=== PATIENT | female | born 1945 | race Caucasian/White ===

== ENCOUNTER → 2016-12-06 | Outpatient (CLI) | payer OTHER ==
[2015-01-04 11:55] VITALS: BP 161/69
--- NOTE | 2016-12-06 10:17 | VAS ---
HISTORY: Left lower extremity pain Study: Left lower extremity venous Doppler Comparison: None TECHNIQUE: Multiple reis scale and color flow Doppler images of the deep venous system were obtaine d of the left lower extremity. FINDINGS: The deep venous system of the left lower extremity was evaluated from the level of the common femora l vein through the popliteal vein. Normal color flow and augmentation can be observed. In addition , normal compression is seen throughout the deep venous system. Incidental note was made of what shane ears to be a 2 centimeter x 1 centimeter architecturally normal lymph node in the popliteal fossa. IMPRESSION: Negative for DVT. Reported By:
== END ==
LOC: RAD 09:29
PROVIDERS: ATTEND Physician Assistant Medical
DX: M79.605 Pain in left leg (principal)
CPT/HCPCS: 93971

== ENCOUNTER → 2016-12-09 | Outpatient (CLI) | payer OTHER ==
[2015-01-04 11:55] VITALS: BP 161/69
[2016-12-09 10:12] LABS: BASOPHILS # (AUTO) 0.1 X10^3/uL (0.0-0.1); BASOPHILS % (AUTO) 1.1 % (0.2-1.0); EOSINOPHILS # (AUTO) 0.2 x10^3/uL (0.0-0.2); EOSINOPHILS % (AUTO) 2.5 % (0.9-2.9); HEMATOCRIT 39.3 % (36.0-47.0); HEMOGLOBIN 12.9 g/dL (12.0-16.0); LYMPHOCYTES # (AUTO) 4.1 X10^3/uL (1.3-2.9); LYMPHOCYTES % (AUTO) 41.6 % (21.0-51.0); MEAN CORPUSCULAR HEMOGLOBIN 29.2 pg (27.0-34.0); MEAN CORPUSCULAR HGB CONC 32.8 g/dL (33.0-35.0); MEAN PLATELET VOLUME 7.7 fL (7.4-11.0); MONOCYTES # (AUTO) 0.6 x10^3/uL (0.3-0.8); MONOCYTES % (AUTO) 6.4 % (0.0-13.0); NEUTROPHILS # (AUTO) 4.8 x10^3/uL (2.2-4.8); NEUTROPHILS % (AUTO) 48.4 % (42.0-75.0); PLATELET COUNT 418 X10^3/uL (150.0-450.0); RED BLOOD COUNT 4.42 X10^6/uL (3.5-5.4); RED CELL DISTRIBUTION WIDTH 14.5 % (11.6-16.5)
[2016-12-09 10:21] LABS: ALANINE AMINOTRANSFERASE 25 Units/L (12-78); ALBUMIN 3.5 g/dL (3.4-5.0); ALKALINE PHOSPHATASE 74 Units/L (46-116); ASPARTATE AMINO TRANSFERASE 17 Units/L (15-37); BILIRUBIN,DIRECT 0.09 mg/dL (0-0.2); BLOOD UREA NITROGEN 14 mg/dL (7-18); CALCIUM 8.5 mg/dL (8.5-10.1); CARBON DIOXIDE 27.5 mmol/L (21-32); CHLORIDE 108 mmol/L (98-107); CHOL/HDL RATIO 4.3 (0.0-5.0); CHOLESTEROL 190 mg/dL (0-200); CREATININE 0.85 mg/dL (0.55-1.02); GLUCOSE 105 mg/dL (65-99); HDL CHOLESTEROL 44 mg/dL (40-60); SODIUM 144 mmol/L (136-145); TOTAL PROTEIN 6.7 g/dL (6.4-8.2); TRIGLYCERIDES 71 mg/dL (0-150); eGFR BLACK RACES > 60 (>60); eGFR NON BLACK RACES > 60 (>60)
== END ==
LOC: LAB 09:27
PROVIDERS: ATTEND Physician Assistant Medical
DX: R07.2 Precordial pain (principal); I10 Essential (primary) hypertension
CPT/HCPCS: 36415; 80048; 80061; 80076; 85025

== ENCOUNTER → 2016-12-27 | Outpatient (CLI) | payer OTHER ==
[2015-01-04 11:55] VITALS: BP 161/69
--- NOTE | 2016-12-27 12:11 | MG ---
HISTORY: SCREENING Comparison: Multiple priors dating back to June 17, 2008 FINDINGS: Bilateral CC and MLO projections of the right and left breast were obtained. Heterogeneously dense fibroglandular tissue is seen to be present without suspicious interval change. There are bilateral waxing and waning breast nodules most compatible with benign parenchymal cysts without a new or dev eloping dominant suspicious mass or architectural distortion identified. No skin thickening or nipp le retraction is appreciated. No pathological lymphadenopathy can be identified. Benign-appearing calcifications are noted within the right and left breast. IMPRESSION: NO RADIOGRAPHIC EVIDENCE OF MALIGNANCY. ACR CATEGORY 2 - benign findings. FOLLOW-UP EXAM 1 YEAR. Diagnostic CAD was utilized and reviewed. * 0 (ZERO) - ASSESSMENT INCOMPLETE; ADDITIONAL IMAGING IS NEEDED. * 1/1 (ONE) - NEGATIVE. * 2/II (TWO) - BENIGN FINDINGS. * 3/III (THREE) - PROBABLY BENIGN FINDING; SHORT INTERVAL FOLLOW-UP SUGGESTED. * 4/IV (FOUR) - SUSPICIOUS ABNORMALITY; BIOPSY SHOULD BE CONSIDERED. * 5/V (FIVE) - HIGHLY SUSPICIOUS OF MALIGNANCY; BIOPSY SHOULD BE PERFORMED. A NEGATIVE X-RAY REPORT SHOULD NOT DELAY BIOPSY IF A DOMINANT OR CLINICALLY SUSPICIOUS MASS IS PRESENT; 4 TO 8 PERCENT OF CANCERS ARE NOT IDENTIFIED BY X-RAY. A NEG ATIVE REPORT MAY REINFORCE THE CLINICAL IMPRESSION. ADENOSIS AND DENSE BREASTS MAY OBSCURE AN UNDER LYING NEOPLASM. Reported By:
== END ==
LOC: RAD 08:39
PROVIDERS: ATTEND Specialist
DX: Z12.31 Encounter for screening mammogram for malignant neoplasm of breast (principal)
CPT/HCPCS: 77067

== ENCOUNTER → 2017-08-30 | Outpatient (CLI) | payer OTHER ==
[2015-01-04 11:55] VITALS: BP 161/69
== END ==
LOC: LAB 15:39
PROVIDERS: ATTEND Urology
DX: N39.0 Urinary tract infection, site not specified (principal)
CPT/HCPCS: 87086

== ENCOUNTER 2017-12-12 12:25 | Observation (INO) | payer OTHER ==
[2017-12-12] MEDS ORDERED: SOLU-Medrol 125 MG VIAL IVP ONE (13:14)
[2017-12-12] MEDS: DUONEB 0.5 MG/3 MG NEB SCH ×3 (13:38→19:59)
[2017-12-12 13:48] LABS: BASOPHILS # (AUTO) 0.3 X10^3/uL (0.0-0.1); BASOPHILS % (AUTO) 1.7 % (0.2-1.0); EOSINOPHILS # (AUTO) 0.2 x10^3/uL (0.0-0.2); EOSINOPHILS % (AUTO) 1.4 % (0.9-2.9); HEMATOCRIT 42.3 % (36.0-47.0); HEMOGLOBIN 14.1 g/dL (12.0-16.0); LYMPHOCYTES # (AUTO) 5.3 X10^3/uL (1.3-2.9); LYMPHOCYTES % (AUTO) 34.7 % (21.0-51.0); MEAN CORPUSCULAR HEMOGLOBIN 29.5 pg (27.0-34.0); MEAN CORPUSCULAR HGB CONC 33.3 g/dL (33.0-35.0); MEAN CORPUSCULAR VOLUME 88.6 fL (80.0-100.0); MEAN PLATELET VOLUME 7.7 fL (7.4-11.0); MONOCYTES # (AUTO) 0.9 x10^3/uL (0.3-0.8); MONOCYTES % (AUTO) 5.9 % (0.0-13.0); NEUTROPHILS # (AUTO) 8.5 x10^3/uL (2.2-4.8); NEUTROPHILS % (AUTO) 56.3 % (42.0-75.0); PLATELET COUNT 432 X10^3/uL (150.0-450.0); RED BLOOD COUNT 4.78 X10^6/uL (3.5-5.4); RED CELL DISTRIBUTION WIDTH 14.6 % (11.6-16.5); WHITE BLOOD COUNT 15.2 X10^3/uL (3.6-10.0)
[2017-12-12 14:10] LABS: ALANINE AMINOTRANSFERASE 29 Units/L (12-78); ALBUMIN 3.8 g/dL (3.4-5.0); ALKALINE PHOSPHATASE 84 Units/L (46-116); ASPARTATE AMINO TRANSFERASE 15 Units/L (15-37); BLOOD UREA NITROGEN 17 mg/dL (7-18); CALCIUM 8.7 mg/dL (8.5-10.1); CARBON DIOXIDE 22.9 mmol/L (21-32); CHLORIDE 103 mmol/L (98-107); CKMB % 2.1 % (<4); COR NA(FOR HYPERGLY) 138 mmol/L (136-145); CREATINE KINASE 77 Units/L (26-192); CREATINE KINASE MB 1.6 ng/mL (0-4.0); CREATININE 0.91 mg/dL (0.55-1.02); SODIUM 138 mmol/L (136-145); TOTAL PROTEIN 7.3 g/dL (6.4-8.2); TROPONIN I < 0.02 ng/mL (0-1.5); eGFR BLACK RACES > 60 (>60); eGFR NON BLACK RACES > 60 (>60)
[2017-12-12 15:12] VITALS: BMI 39.0
[2017-12-12] MEDS ORDERED: NS 250 ML IV 250 ML IV ONE (16:39)
[2017-12-12] MEDS ORDERED: SOLU-Medrol 125 MG VIAL ONE (16:41)
[2017-12-12] MEDS: ROCEPHIN 1 GM IV PREMIX 1 GM/50 ML IV.SOLN. IV SCH (16:42)
[2017-12-12] MEDS ORDERED: NS 100 ML IV 100 ML IV ONE (17:24)
--- NOTE | 2017-12-12 18:28 | CT ---
HISTORY: Shortness of breath. Prior history of COPD, asthma, hypertension and bladder cancer. Study: CTA chest Comparison: 02/29/2016(CT for coronary calcium only) Technique: Multiple axial images of the chest were obtained from the thoracic inlet to the upper abdo men during the administration of IV contrast. In addition to standard multi planar reconstructions, M IP reconstructions were performed and reviewed in axial, coronal and sagittal planes. Dose reduction techniques utilized automatic exposure control. Findings: The mediastinum does not demonstrate significant pathological lymphadenopathy. There is no pericardi al effusion observed. The thoracic aorta is normal in its contour without evidence for aneurysmal di latation. Coronary calcification is present within the LAD. The central pulmonary arterial system berger s not demonstrate central filling defects to suggest pulmonary emboli. Evaluation of the lung parenchyma reveals centrilobular emphysema and milder cylindrical bronchiectas is. There is linear scarring present in the left lower lobe.. No pulmonary nodule or mass can be andrés ntified. The bony thorax displays multilevel spondylosis.. Liver and adrenal glands are normal. Gal lbladder surgically absent.. IMPRESSION: Changes of COPD and left lower lobe scarring. No thoracic aortic aneurysm or pulmonary embolus is see n. Reported By:
[2017-12-12 18:38] LABS: CKMB % 2.3 % (<4); CREATINE KINASE 74 Units/L (26-192); CREATINE KINASE MB 1.7 ng/mL (0-4.0); TROPONIN I < 0.02 ng/mL (0-1.5)
--- NOTE | 2017-12-12 19:24 | DR.UPDATE ---
H&P Update History and Physical Update: WAS SEEN IN THE OFFICE TODAY. A H&P WAS COMPLETED PRIOR TO ADMISSION. PATIENT HAS BEEN SEEN AND EXAMINED WITH NO CHANGES NOTED TO H&P. Changes noted: NO Yes with the following:
[2017-12-12] MEDS: SOLU-Medrol 125 MG VIAL IVP SCH (21:02)
--- NOTE | 2017-12-12 21:59 | RAD ---
HISTORY: Shortness of breath Study: Single view chest Comparison: CT same day Findings: Prominent epicardial fat is seen at the right cardiophrenic sulcus. No infiltrate, effusion or pneumo thorax identified. The cardiac and mediastinal contours are within normal limits. The soft tissues a re unremarkable. IMPRESSION: 1. No acute cardiopulmonary abnormality. Reported By:
[2017-12-12 22:31] LABS: CKMB % 2.1 % (<4); CREATINE KINASE 81 Units/L (26-192); CREATINE KINASE MB 1.7 ng/mL (0-4.0); TROPONIN I < 0.02 ng/mL (0-1.5)
[2017-12-13 05:34] LABS: BASOPHILS # (AUTO) 0.1 X10^3/uL (0.0-0.1); BASOPHILS % (AUTO) 0.7 % (0.2-1.0); HEMATOCRIT 42.2 % (36.0-47.0); LYMPHOCYTES % (AUTO) 16.5 % (21.0-51.0); MEAN CORPUSCULAR HEMOGLOBIN 29.6 pg (27.0-34.0); MEAN CORPUSCULAR HGB CONC 33.2 g/dL (33.0-35.0); MEAN CORPUSCULAR VOLUME 89.3 fL (80.0-100.0); MEAN PLATELET VOLUME 8.1 fL (7.4-11.0); MONOCYTES # (AUTO) 0 x10^3/uL (0.3-0.8); MONOCYTES % (AUTO) 0.4 % (0.0-13.0); NEUTROPHILS # (AUTO) 10.2 x10^3/uL (2.2-4.8); NEUTROPHILS % (AUTO) 82.4 % (42.0-75.0); PLATELET COUNT 416 X10^3/uL (150.0-450.0); RED BLOOD COUNT 4.73 X10^6/uL (3.5-5.4); RED CELL DISTRIBUTION WIDTH 14.6 % (11.6-16.5); WHITE BLOOD COUNT 12.3 X10^3/uL (3.6-10.0)
[2017-12-13] MEDS: SOLU-Medrol 125 MG VIAL IVP SCH ×2 (05:44→15:52)
[2017-12-13] MEDS ORDERED: TYLENOL 325 MG TAB PO PRN (05:45)
[2017-12-13 05:52] LABS: ALANINE AMINOTRANSFERASE 30 Units/L (12-78); ALBUMIN 3.6 g/dL (3.4-5.0); ALKALINE PHOSPHATASE 80 Units/L (46-116); ASPARTATE AMINO TRANSFERASE 17 Units/L (15-37); BLOOD UREA NITROGEN 16 mg/dL (7-18); CALCIUM 8.8 mg/dL (8.5-10.1); CARBON DIOXIDE 22.8 mmol/L (21-32); CHLORIDE 103 mmol/L (98-107); COR NA(FOR HYPERGLY) 139 mmol/L (136-145); CREATININE 0.97 mg/dL (0.55-1.02); SODIUM 137 mmol/L (136-145); TOTAL PROTEIN 7.4 g/dL (6.4-8.2); eGFR BLACK RACES > 60 (>60); eGFR NON BLACK RACES > 60 (>60)
[2017-12-13] MEDS: ROCEPHIN 1 GM IV PREMIX 1 GM/50 ML IV.SOLN. IV SCH (08:52)
[2017-12-13] MEDS: DUONEB 0.5 MG/3 MG NEB SCH ×2 (09:00→11:55)
[2017-12-13] MEDS ORDERED: PATIENT'S HOME MEDICATION (Alprazolam [Alprazolam] 1 MG) PO PRN (10:07)
[2017-12-13] MEDS ORDERED: DAPSONE PO PRN (10:07)
[2017-12-13] MEDS ORDERED: PATIENT'S HOME MEDICATION (Losartan Potassium [Losartan Potassium] 1 TAB) PO SCH (10:15)
[2017-12-13] MEDS ORDERED: PATIENT'S HOME MEDICATION (Tiotropium Bromide Monohydrate 1 INH) INH SCH (10:15)
[2017-12-13] MEDS ORDERED: PATIENT'S HOME MEDICATION (Fluticasone/Vilanterol [Breo Ellipta 200-25 Mcg Inh] 1 PUFF) INH SCH (10:15)
[2017-12-13] MEDS ORDERED: MODAFINIL 100 MG PO SCH (10:15)
[2017-12-13] MEDS ORDERED: PATIENT'S HOME MEDICATION PO SCH (10:30)
[2017-12-13] MEDS ORDERED: XANAX PO SCH (11:00)
[2017-12-13] MEDS ORDERED: PROzac PO SCH (11:00)
[2017-12-13] MEDS ORDERED: TAB-A-VITE PO SCH (11:00)
[2017-12-13] MEDS ORDERED: COZAAR PO SCH (11:00)
[2017-12-13] MEDS ORDERED: DETROL LA 4 MG CAP EXT REL PO SCH (11:00)
[2017-12-13 16:53] VITALS: BP 119/62
[2017-12-13] MEDS ORDERED: PULMICORT NEB TX 0.5 MG NEB ONE (19:15)
[2017-12-13] MEDS ORDERED: DUONEB 0.5 MG/3 MG ONE (19:15)
[2017-12-13] MEDS ORDERED: PULMICORT NEB TX 0.5 MG NEB SCH (21:00)
== END 2017-12-13 17:10 | disposition home or self-care (01) ==
LOC: MED/SURG 12:25
PROVIDERS: ADMIT Internal Medicine; ATTEND Internal Medicine
DX: R06.09 Other forms of dyspnea (principal); R07.89 Other chest pain; I10 Essential (primary) hypertension; J45.998 Other asthma; J44.9 Chronic obstructive pulmonary disease, unspecified
CPT/HCPCS: 36415; 71045; 71275; 80053; 82550; 82553; 84484; 85025; 93005; 94640; 94760; A4216; A4222; G0378; J0696; J2930; J7620; J7626